=== PATIENT | male | born 1940 | race Caucasian/White ===

== ENCOUNTER 2020-10-16 18:30 | Emergency (ER) | payer MEDICARE ==
[~2020-10-16 18:30] MED LIST: ACETAMINOPHEN-1 EAC1 PO; CETIRIZINE HCL10 M1 PO; COLACE100 MG PO; LEVSIN-SL0.125 MG SL; MIRALAX 238GM238 GM PO; NORCO 5-325 TA1 EACH PO; POTASSIUM CITR10 MEQ PO; PROAIR HFA8.5 GM INH; VITAMIN D32000 UNI1 PO; ZOFRAN4 MG PO; ZOLOFT50 MG PO
== END 2020-10-16 21:46 | disposition home or self-care (01) ==
LOC: FER 18:30
DX: S01.81XA Laceration without foreign body of other part of head, initial encounter (principal); S61.412A Laceration without foreign body of left hand, initial encounter; F03.90 Unspecified dementia, unspecified severity, without behavioral disturbance, psychotic disturbance, mood disturbance, and anxiety; W19.XXXA Unspecified fall, initial encounter; Y92.009 Unspecified place in unspecified non-institutional (private) residence as the place of occurrence of the external cause
CPT/HCPCS: 70450; 70486; 72125

== ENCOUNTER 2020-10-21 13:32 | Emergency (ER) | payer MEDICARE ==
[2020-10-21] MEDS ORDERED: CLEOCIN300 MG PO (14:55)
[2020-10-21] MEDS ORDERED: BACITRACIN15 GM TOP (14:55)
== END 2020-10-21 15:46 | disposition home or self-care (01) ==
LOC: FER 13:32
DX: S01.112D Laceration without foreign body of left eyelid and periocular area, subsequent encounter (principal); S61.412D Laceration without foreign body of left hand, subsequent encounter; L03.114 Cellulitis of left upper limb; W19.XXXD Unspecified fall, subsequent encounter
CPT/HCPCS: 99281